=== PATIENT | male | born 1995 | race Caucasian/White ===

== ENCOUNTER 2024-03-07 03:48 | Emergency (ER) | payer OTHER ==
[2024-03-07] MEDS: Ketorolac 30 MG/ML SDV IM ONE (04:16)
[2024-03-07 04:22] VITALS: BP 131/74; PULSE 76
== END 2024-03-07 05:14 | disposition home or self-care (01) ==
LOC: JD.ED 03:48
DX: M51.27 Other intervertebral disc displacement, lumbosacral region (principal); Z91.048 Other nonmedicinal substance allergy status
CPT/HCPCS: 72131; 96372; 99283; J1885